=== PATIENT | male | born 1985 | race Two or more races ===

== ENCOUNTER 2018-09-07 22:27 | Emergency (ER) | payer OTHER ==
[~2018-09-07] VITALS: Ht 180.3 cm; Wt 97.7 kg
[2018-09-07] MEDS ORDERED: magnesium 2GM in 50ml NS 50 ML IV ONE (22:50)
[2018-09-07] MEDS ORDERED: normal saline 1000ML IV soln IV ONE (22:50)
[2018-09-07] MEDS ORDERED: LORazepam 2 mg/ml vial IV ONE (22:50)
[2018-09-07] MEDS ORDERED: ondansetron/PF 4mg/2ml inj IV ONE (22:50)
[2018-09-07] MEDS ORDERED: thiamine 100mg/ml 2ml inj. IV ONE (22:50)
[2018-09-07] MEDS ORDERED: potassium Cl oral solution 20 MEQ/15 ML PO ONE (22:50)
[2018-09-07] MEDS ORDERED: folic acid 1mg/0.2ml inj IV ONE (22:50)
[2018-09-07 23:04] LABS: BASOPHILS # (AUTO) 0.1 X10'3 (0-0.2); BASOPHILS % (AUTO) 0.7 % (0-1); EOSINOPHILS # (AUTO) 0.2 X10'3 (0-0.9); EOSINOPHILS % (AUTO) 1.2 % (0-6); HEMATOCRIT 47.4 % (42.0-52.0); LYMPHOCYTES # (AUTO) 5.2 X10'3 (1.1-4.8); LYMPHOCYTES % (AUTO) 40.6 % (21-51); MEAN CORPUSCULAR HEMOGLOBIN 26.2 PG (27.0-31.0); MEAN CORPUSCULAR HGB CONC 33.7 g/dL (33.0-36.5); MEAN CORPUSCULAR VOLUME 77.8 FL (78-98); MEAN PLATELET VOLUME 9.5 FL (7.4-10.4); MONOCYTES # (AUTO) 1.1 X10'3 (0-0.9); MONOCYTES % (AUTO) 8.5 % (2-12); NEUTROPHILS # (AUTO) 6.3 X10'3 (1.8-7.7); PLATELET COUNT 211 X10'3 (140-440); RED BLOOD COUNT 6.09 X10'6 (4.70-6.10); RED CELL DISTRIBUTION WIDTH 14.6 % (11.5-14.5); WHITE BLOOD COUNT 12.9 X10'3 (4.5-11.0)
--- NOTE | 2018-09-07 23:11 | NUR ---
Noted shallow breathing with desating to low 80's. Oxygen applied at 4L n/c. ERP informed of above. Clarified potassium orders, ERP states when "awake", "give PO".
[2018-09-07 23:13] LABS: ALANINE AMINOTRANSFERASE 54 U/L (12-78); ALBUMIN 4.1 G/DL (3.4-5.0); ALBUMIN/GLOBULIN RATIO 0.9 (1.1-1.5); ALKALINE PHOSPHATASE 108 IU/L (46-116); ANION GAP 17 (8-16); ASPARTATE AMINO TRANSFERASE 44 U/L (10-37); BILIRUBIN,TOTAL 0.9 MG/DL (0.1-1.0); BLOOD UREA NITROGEN 15 MG/DL (7-18); CALCIUM 8.6 MG/DL (8.5-10.1); CHLORIDE 101 MMOL/L (99-107); CREATININE 1.07 MG/DL (0.60-1.10); ETHANOL 0.163 GM/DL (0.0-0.010); GLUCOSE 140 MG/DL (70-104); POTASSIUM 3.2 MMOL/L (3.5-5.1); SODIUM 139 MMOL/L (135-145); TOTAL PROTEIN 8.8 G/DL (6.4-8.2); eGFR 80 ML/MIN
[2018-09-08 00:02] LABS: MICROCYTOSIS 1+; PLATELET ESTIMATE NORMAL
[2018-09-08 00:41] LABS: URINE AMPHETAMINE SCREEN NEGATIVE (Neg); URINE BARBITUATE SCREEN NEGATIVE (Neg); URINE BENZODIAZEPINES SCREEN NEGATIVE (Neg); URINE CANNABINOID SCREEN POSITIVE (Neg); URINE COCAINE SCREEN POSITIVE (Neg); URINE METHADONE SCREEN NEGATIVE (Neg); URINE OPIATE SCREEN NEGATIVE (Neg); URINE PHENCYCLIDINE SCREEN NEGATIVE (Neg)
[2018-09-08 00:56] VITALS: BP 150/99
== END 2018-09-08 01:12 | disposition home or self-care (01) ==
LOC: ER 22:27
DX: E86.0 Dehydration (principal); R41.82 Altered mental status, unspecified; F10.129 Alcohol abuse with intoxication, unspecified; I10 Essential (primary) hypertension; E87.8 Other disorders of electrolyte and fluid balance, not elsewhere classified; F12.90 Cannabis use, unspecified, uncomplicated; F14.90 Cocaine use, unspecified, uncomplicated; Y90.9 Presence of alcohol in blood, level not specified
CPT/HCPCS: 36415; 71045; 80053; 80305; 80320; 82948; 85025; 93005; 96365; 96375; 99284; J2060; J2405; J3411; J3475; J3490; J7030

== ENCOUNTER 2021-03-31 16:59 | Emergency (ER) | payer MEDICAID, OTHER | END 2021-03-31 19:28 | disposition left against medical advice (07) | LOC: ER 17:00 | DX: R10.9 Unspecified abdominal pain (principal); Z53.21 Procedure and treatment not carried out due to patient leaving prior to being seen by health care provider ==